=== PATIENT | female | born 1995 | race Caucasian/White ===

== ENCOUNTER 2020-01-17 05:47 | Inpatient (IN) | payer BC ==
[2020-01-17] MEDS ORDERED: Misoprostol 200 MCG Tab PO PRN (06:02)
[2020-01-17] MEDS ORDERED: Butorphanol 1 MG/ML SDV IVPUSH PRN (06:02)
[2020-01-17] MEDS ORDERED: Lidocaine 1% 50 ML MDV INJECT PRN (06:02)
[2020-01-17] MEDS ORDERED: Sodium Chloride 0.9% 10 ML SDV IV PRN (06:02)
[2020-01-17] MEDS ORDERED: Carboprost Tromethamine 250 MCG/1 ML Amp IM PRN (06:02)
[2020-01-17] MEDS ORDERED: Nalbuphine 10 MG/1 ML Vial IVPUSH PRN (06:02)
[2020-01-17] MEDS ORDERED: Sodium Chloride 0.9% 2.5 ML Syringe FLUSH PRN (06:02)
[2020-01-17] MEDS ORDERED: Methylergonovine 0.2 MG/1 ML Amp IM PRN (06:02)
[2020-01-17] MEDS ORDERED: Sodium Chloride 0.9% 10 ML Syringe FLUSH PRN (06:02)
[2020-01-17] MEDS ORDERED: Tranexamic Acid 1,000 MG in Sodium Chloride 0.9% 100 ML IV PRN (06:02)
[2020-01-17] MEDS ORDERED: Water For Irrigation,Sterile 1,000 ML Container IRR PRN (06:02)
[2020-01-17] MEDS ORDERED: Lactated Ringers 1,000 ML IV SCH (06:15)
[2020-01-17] MEDS ORDERED: Oxytocin/0.9 % Sodium Chloride 30 UNIT/500 ML BAG IV SCH (06:15)
[2020-01-17] MEDS ORDERED: Witch Hazel Medicated Pads 40/Jar TOP PRN (06:45)
[2020-01-17] MEDS ORDERED: Acetaminophen 500 MG Tab PO PRN (06:45)
[2020-01-17] MEDS ORDERED: Docusate Sodium 100 MG Cap PO PRN (06:45)
[2020-01-17] MEDS ORDERED: Bisacodyl 10 MG Supp RECTAL PRN (06:45)
[2020-01-17] MEDS ORDERED: oxyCODONE 5 MG Tab PO PRN (06:45)
[2020-01-17] MEDS ORDERED: Benzocaine/Menthol 20%-0.5% Spray 78 GM Cannister TOP PRN (06:45)
[2020-01-17] MEDS ORDERED: Lanolin 100% Cream 7 GM Tube TOP PRN (06:45)
--- NOTE | 2020-01-17 06:48 | PCM.DEL ---
L & D Note - General Info Date of Service: 01/17/20 Mother's Due Date: 02/01/20 - Delivery Note Labor: Spontaneous Delivery Outcome: Livebirth Infant Delivery Method: Spontaneous Vaginal Delivery-Single Presentation: Vertex Nuchal Cord: Present, Reduced (after delivery of body) Anesthesia Type: None Amniotic Fluid Description: Clear Episiotomy Type: None Laceration: Labial (left labial, hemostatic without repair) Placenta: Intact, Spontaneous Cord: 3 Vessels Resuscitation Needed: Yes : Stimulated Score 1 min: 8 Score 5 min: 9 - General Info Date of Service: 01/17/20 - Patient Data Weight - Most Recent: 104.326 kg Lab Results Last 24 Hours: Laboratory Results - last 24 hr 01/17/20 Range/Units 06:16 WBC 8.12 (4.0-11.0) K/uL RBC 4.21 L (4.30-5.90) M/uL Hgb 12.3 (12.0-16.0) g/dL Hct 38.0 (36.0-46.0) % MCV 90.3 (80.0-98.0) fL MCH 29.2 (27.0-32.0) pg MCHC 32.4 (31.0-37.0) g/dL RDW Std Deviation 46.4 (28.0-62.0) fl RDW Coeff of Romi 14 (11.0-15.0) % Plt Count 214 (150-400) K/uL MPV 10.90 (7.40-12.00) fL Nucleated RBC % 0.0 /100WBC Nucleated RBCs # 0 K/uL Med Orders - Current: Current Medications Butorphanol Tartrate (Stadol) 1 mg IVPUSH Q1H PRN PRN Reason: Pain Carboprost Tromethamine (Hemabate Ds) 250 mcg IM ASDIRECTED PRN PRN Reason: Post Hemorrhage Lactated Ringer's (Ringers, Lactated) 1,000 mls @ 150 mls/hr IV ASDIRECTED WHIT Last Admin: 01/17/20 06:00 Dose: 150 mls/hr Oxytocin/Sodium Chloride (Oxytocin 30 Unit/500 Ml-Ns) 30 unit in 500 mls @ 500 mls/hr IV TITRATE WHIT Last Admin: 01/17/20 06:29 Dose: 500 mls/hr Tranexamic Acid 1,000 mg/ (Sodium Chloride) 110 mls @ 660 mls/hr IV ONETIME PRN PRN Reason: Bleeding Lidocaine HCl (Xylocaine 1%) 50 ml INJECT ONETIME PRN PRN Reason: Laceration repair Methylergonovine Maleate (Methergine) 0.2 mg IM ASDIRECTED PRN PRN Reason: Post Hemorrhage Misoprostol (Cytotec) 200 mcg PO ONETIME PRN PRN Reason: Post Hemorrhage Nalbuphine HCl (Nubain) 10 mg IVPUSH Q1H PRN PRN Reason: Pain (severe 7-10) Sodium Chloride (Saline Flush) 10 ml FLUSH ASDIRECTED PRN PRN Reason: Keep Vein Open Sodium Chloride (Saline Flush) 2.5 ml FLUSH ASDIRECTED PRN PRN Reason: Keep Vein Open Sodium Chloride (Normal Saline) 10 ml IV ASDIRECTED PRN PRN Reason: IV Use Sterile Water (Sterile Water For Irrigation) 1,000 ml IRR ASDIRECTED PRN PRN Reason: delivery - Problem List & Annotations (1) Vaginal delivery SNOMED Code(s): 951337095 Code(s): O80 - ENCOUNTER FOR FULL-TERM UNCOMPLICATED DELIVERY Status: Acute Current Visit: Yes - Problem List Review Problem List Initiated/Reviewed/Updated: Yes - My Orders Last 24 Hours: My Active Orders 01/17/20 06:02 Patient Status [ADT] Routine Heart Tones [RC] CONTINUOUS Non Stress Test [RC] PER UNIT ROUTINE May Shower [RC] ASDIRECTED Notify Provider [RC] PRN Up ad Lora [RC] ASDIRECTED Vaginal Exam [RC] PRN Vital Signs [RC] PER UNIT ROUTINE Butorphanol [Stadol] 1 mg IVPUSH Q1H PRN Carboprost Tromethamine [Hemabate DS] 250 mcg IM ASDIRECTED PRN Lidocaine 1% [Xylocaine 1%] 50 ml INJECT ONETIME PRN Methylergonovine [Methergine] 0.2 mg IM ASDIRECTED PRN Nalbuphine [Nubain] 10 mg IVPUSH Q1H PRN Sodium Chloride 0.9% [Normal Saline] 10 ml IV ASDIRECTED PRN Sodium Chloride 0.9% [Saline Flush] 10 ml FLUSH ASDIRECTED PRN Sodium Chloride 0.9% [Saline Flush] 2.5 ml FLUSH ASDIRECTED PRN Tranexamic Acid [Cyklokapron] 1,000 mg Sodium Chloride 0.9% [Normal Saline] 100 ml IV ONETIME Water For Irrigation,Sterile [Sterile Water for Irrigation] 1,000 ml IRR ASDIRECTED PRN miSOPROStoL [Cytotec] 200 mcg PO ONETIME PRN Scalp Electrode [WOMSER] Per Unit Routine Peripheral IV Insertion Adult [OM.PC] Routine Resuscitation Status Routine 01/17/20 06:15 Lactated Ringers [Ringers, Lactated] 1,000 ml IV ASDIRECTED Oxytocin/0.9 % Sodium Chloride [Oxytocin 30 Unit/500 ML-NS] 30 unit in 500 ml IV TITRATE 01/17/20 06:16 RPR (SYPHILIS SERO) W/ RFLX [REF] Routine TYPE AND SCREEN [BBK] Routine 01/17/20 06:45 Patient Status [ADT] Routine May Shower [RC] ASDIRECTED Notify Provider Vital Signs [RC] ASDIRECTED Up ad Lora [RC] ASDIRECTED Vital Signs [RC] PER UNIT ROUTINE Acetaminophen [Tylenol Extra Strength] 1,000 mg PO Q6H PRN Benzocaine/Menthol [Dermoplast Pain Relief 20%-0.5% [place]] 78 gm TOP ASDIRECTED PRN Docusate Sodium [Colace] 100 mg PO BID PRN Ibuprofen [Motrin] 800 mg PO Q8H PRN Lanolin [Lansinoh HPA] See Dose Instructions TOP ASDIRECTED PRN bisacodyL [Dulcolax] 10 mg RECTAL ONETIME PRN oxyCODONE 5 mg PO Q2H PRN witch Natty [Tucks] 1 pad TOP ASDIRECTED PRN Assess Lochia [WOMSER] Per Unit Routine Assess Uterine Involution [WOMSER] Per Unit Routine Breast Pump [WOMSER] Per Unit Routine Ice Therapy [OM.PC] Per Unit Routine Perineal Care [OM.PC] Per Unit Routine Peripheral IV Discontinue [OM.PC] Routine Sitz Bath [OM.PC] Per Unit Routine 01/17/20 06:46 Cooling Warming Measures [RC] ASDIRECTED BLOOD GAS ARTERIAL UMBILICAL [BG] Routine BLOOD GAS VENOUS UMBILICAL [BG] Routine 01/17/20 09:00 Sertraline [Zoloft] 150 cap PO DAILY 01/17/20 Breakfast Regular Diet [DIET] 01/18/20 05:11 HEMOGLOBIN/HEMATOCRIT,HH [HEME] Timed - Assessment Assessment:: 24yo s/p at 37w6d - Plan Plan:: Admit to unit for routine care. Continue Sertraline.
[2020-01-17] MEDS: Ibuprofen 800 MG Tab PO PRN (07:26)
[2020-01-17] MEDS ORDERED: Sertraline 100 MG Tab PO SCH (09:00)
--- NOTE | 2020-01-17 12:46 | OR ---
SURGEON: Gale Pollard MD DATE OF PROCEDURE: 01/17/2020 PREOPERATIVE DIAGNOSES: 1. A 24-year-old, G2, P 1-0-0-1, at 37-6/7 weeks' gestation. 2. Spontaneous labor. 3. Group B Streptococcus negative. POSTOPERATIVE DIAGNOSES: A 24-year-old, G2, P 2-0-0-2, status post spontaneous vaginal delivery. PROCEDURE: Spontaneous vaginal delivery. PRIMARY SURGEON: Gale Pollard MD. ESTIMATED BLOOD LOSS: 200 mL. ANESTHESIA: None. FINDINGS: Live female in cephalic presentation. score of 8 and 9 at one and five minutes respectively. Weight 3290 g. Left labial laceration, hemostatic without repair. Placenta intact and with 3-vessel cord. DESCRIPTION OF PROCEDURE: The patient presented to Labor and Delivery complaining of contractions and bleeding. Upon presentation, she was found to be 6 cm dilated and with a bulging bag of water. Rupture of membranes occurred during vaginal exam. The patient quickly progressed to complete cervical dilation. She pushed and delivered a live female infant in cephalic presentation. The head was delivered followed by the shoulders and remainder of the body. A nuchal cord x1 was reduced after delivery of the body. The infant was placed on the maternal abdomen. After approximately 60 seconds, the cord was clamped and cut. Cord gases and cord blood were obtained in the usual fashion. Perineum was inspected and left labial laceration was noted, however, this was hemostatic without repair. The placenta then delivered intact and with 3-vessel cord via the Barger-Felipe maneuver. The patient and tolerated the delivery well. [id number] / MODL /[id number]
[2020-01-18] MEDS: Ibuprofen 800 MG Tab PO PRN (04:34)
--- NOTE | 2020-01-18 08:24 | PCM.PNPP ---
- General Info Date of Service: 01/18/20 Functional Status: Reports: Pain Controlled, Tolerating Diet, Ambulating, Urinating - Review of Systems General: Reports: No Symptoms HEENT: Reports: No Symptoms Pulmonary: Reports: No Symptoms Cardiovascular: Reports: No Symptoms Gastrointestinal: Reports: No Symptoms Genitourinary: Reports: No Symptoms Musculoskeletal: Reports: No Symptoms Skin: Reports: No Symptoms Neurological: Reports: No Symptoms Psychiatric: Reports: No Symptoms - Patient Data Vital Signs - Most Recent: Last Vital Signs Temp 36.1 C 01/18/20 05:01 Pulse 82 01/18/20 05:01 Resp 17 01/18/20 05:01 BP 111/73 01/18/20 05:01 Pulse Ox 96 01/18/20 05:01 Weight - Most Recent: 99.79 kg Lab Results - Last 24 Hours: Laboratory Results - last 24 hr 01/18/20 Range/Units 06:03 Hgb 12.9 (12.0-16.0) g/dL Hct 39.6 (36.0-46.0) % Med Orders - Current: Current Medications Acetaminophen (Tylenol Extra Strength) 1,000 mg PO Q6H PRN PRN Reason: Pain Last Admin: 01/17/20 14:40 Dose: 1,000 mg Benzocaine/Menthol (Dermoplast Pain Relief 20%-0.5% [place]) 78 gm TOP ASDIRECTED PRN PRN Reason: Perineal Comfort Measure Last Admin: 01/17/20 07:25 Dose: 1 canister Bisacodyl (Dulcolax) 10 mg RECTAL ONETIME PRN PRN Reason: Constipation Butorphanol Tartrate (Stadol) 1 mg IVPUSH Q1H PRN PRN Reason: Pain Carboprost Tromethamine (Hemabate Ds) 250 mcg IM ASDIRECTED PRN PRN Reason: Post Hemorrhage Docusate Sodium (Colace) 100 mg PO BID PRN PRN Reason: Constipation Last Admin: 01/17/20 07:26 Dose: 100 mg Emollient Ointment (Lansinoh Hpa) 0 gm TOP ASDIRECTED PRN PRN Reason: Sore Nipples Last Admin: 01/17/20 07:25 Dose: 7 gm Lactated Ringer's (Ringers, Lactated) 1,000 mls @ 150 mls/hr IV ASDIRECTED WHIT Last Admin: 01/17/20 06:00 Dose: 150 mls/hr Oxytocin/Sodium Chloride (Oxytocin 30 Unit/500 Ml-Ns) 30 unit in 500 mls @ 500 mls/hr IV TITRATE [facility] Last Admin: 01/17/20 06:29 Dose: 500 mls/hr Tranexamic Acid 1,000 mg/ (Sodium Chloride) 110 mls @ 660 mls/hr IV ONETIME PRN PRN Reason: Bleeding Ibuprofen (Motrin) 800 mg PO Q8H PRN PRN Reason: Pain Last Admin: 01/18/20 04:34 Dose: 800 mg Lidocaine HCl (Xylocaine 1%) 50 ml INJECT ONETIME PRN PRN Reason: Laceration repair Methylergonovine Maleate (Methergine) 0.2 mg IM ASDIRECTED PRN PRN Reason: Post Hemorrhage Misoprostol (Cytotec) 200 mcg PO ONETIME PRN PRN Reason: Post Hemorrhage Nalbuphine HCl (Nubain) 10 mg IVPUSH Q1H PRN PRN Reason: Pain (severe 7-10) Oxycodone HCl (Oxycodone) 5 mg PO Q2H PRN PRN Reason: Pain Sertraline HCl (Zoloft) mg PO DAILY [facility] Sodium Chloride (Saline Flush) 10 ml FLUSH ASDIRECTED PRN PRN Reason: Keep Vein Open Sodium Chloride (Saline Flush) 2.5 ml FLUSH ASDIRECTED PRN PRN Reason: Keep Vein Open Sodium Chloride (Normal Saline) 10 ml IV ASDIRECTED PRN PRN Reason: IV Use Sterile Water (Sterile Water For Irrigation) 1,000 ml IRR ASDIRECTED PRN PRN Reason: delivery Witch Zakia (Tucks) 1 pad TOP ASDIRECTED PRN PRN Reason: comfort care Last Admin: 01/17/20 07:25 Dose: 1 container - Infant Interaction Disposition, : to Nursery Feeding: Breastfed ; Nursed Well Support Person: Significant Other - Recovery Exam Fundal Tone: Firm Fundal Level: 2 Fingerbreadths Below Umbilicus Fundal Placement: Midline Lochia Amount: Scant Lochia Color: Rubra/Red Perineum Description: Intact, Minimal Bruising/Swelling Other Perinuem Description: skin ortiz Episiotomy/Laceration: None Bladder Status: Voiding Urinary Elimination: Voided - Exam General: Alert, Oriented Neck: Supple Lungs: Normal Respiratory Effort GI/Abdominal Exam: Soft, Non-Tender, No Distention, No Mass Extremities: Normal Range of Motion, Non-Tender, No Pedal Edema Skin: Warm Neurological: No New Focal Deficit - Problem List & Annotations (1) Vaginal delivery SNOMED Code(s): 595244835 Code(s): O80 - ENCOUNTER FOR FULL-TERM UNCOMPLICATED DELIVERY Status: Acute Current Visit: Yes - Problem List Review Problem List Initiated/Reviewed/Updated: Yes - Assessment Assessment:: PPD#1 after , stable, minimal lochia, tolerating regular diet, minimal lochia , pain well controlled - Plan Plan:: Dismiss to home. Discharge precautions reviewed.
== END 2020-01-18 11:49 | disposition home or self-care (01) | DRG 560 ==
LOC: MW.OBCHECK 05:47 → MW.OB 06:02 → OBSVTOIN 06:28 → MW.OB 06:28
PROVIDERS: ADMIT Obstetrics & Gynecology; ATTEND Obstetrics & Gynecology
PROC: 10E0XZZ Delivery of Products of Conception, External Approach (ICD-10-PCS; principal; 2020-01-17)
DX: O69.81X0 Labor and delivery complicated by cord around neck, without compression, not applicable or unspecified (principal); O70.0 First degree perineal laceration during delivery; Z3A.37 37 weeks gestation of pregnancy; Z37.0 Single live birth
CPT/HCPCS: 36415; 59025; 59409; 82803; 85014; 85018; 85027; 86592; 86593; 86850; 86900; 86901; A9270-GY; J2590; J7120

== ENCOUNTER 2020-10-07 16:00 | Emergency (ER) | payer BC ==
--- NOTE | 2020-10-07 16:06 | EDM.PDOC ---
ED HPI GENERAL MEDICAL PROBLEM - General Chief Complaint: General Stated Complaint: VISION,DOES NOT FEEL WELL Time Seen by Provider: 10/07/20 16:01 Source of Information: Reports: Patient History Limitations: Reports: No Limitations - History of Present Illness INITIAL COMMENTS - FREE TEXT/NARRATIVE: HISTORY AND PHYSICAL: History of present illness: Patient is a 25-year-old female who presents to the ED today with concern of dizziness and unable to describe exactly what she means x3 days. Patient states 3 days ago she saw her primary care provider, Dr. Romero and at that time he had stopped her Zoloft and Wellbutrin and started her on Seroquel. Patient states that she is unsure if she is having withdrawals from stopping her Zoloft and Wellbutrin or if she is having an adverse reaction to her Seroquel. Patient describes a vague "dizziness "and states that she feels "out of it ". Patient states that she saw "bizarre colors" after taking her first dose of Seroquel and also had one episode of hearing whispering after taking her first dose of Seroquel a few days ago but is not currently hearing this. Patient states that she has had a history of bipolar in the past and was having issues with ruben and depression. Patient states this is why Dr. Pedraza was switching her medications. Patient denies any head injury or trauma. Patient states she rangel been on 100mg of Zoloft and 150mg of Wellbutrin and stopped these without tapering as well as started Seroquel for the first time on the same day. Denies any head trauma or injury or any other symptoms or concerns. Patient denies fever, chills, chest pain, shortness of breath, or cough. Denies headache, neck stiff ness, change in vision, syncope, or near syncope. Denies nausea, vomiting, abdominal pain, diarrhea, constipation, or dysuria. Has not noted any blood in urine or stool. Patient has been eating and drinking appropriately. Review of systems: As per history of present illness and below otherwise all systems reviewed and negative. Past medical history: As per history of present illness and as reviewed below otherwise noncontributory. Surgical history: As per history of present illness and as reviewed below otherwise noncontributory. Social history: See social history for further information Family history: As per history of present illness and as reviewed below otherwise noncontr ibutory. Physical exam: General: Patient is alert, oriented, and in no acute distress. Patient sitting comfortably on exam table. Vital stable and reviewed by me. HEENT: Atraumatic, normocephalic, pupils equal and reactive bilaterally, negative for conjunctival pallor or scleral icterus, mucous membranes moist, TMs normal bilaterally, throat clear, neck supple, nontender, trachea midline. No drooling or trismus noted. No meningeal signs. No hot potato voice noted. Lungs: Clear to auscultation, breath sounds equal bilaterally, chest nontender. Heart: S1S2, regular rate and rhythm without overt murmur Abdomen: Soft, nondistended, nontender. Negative for masses or hepatosplenomegaly. Negative for costovertebral tenderness. Pelvis: Stable nontender. Genitourinary: Deferred. Rectal: Deferred. Skin: Intact, warm, dry. No lesions or rashes noted. Extremities: Atraumatic, negative for cords or calf pain. Neurovascular unremarkable. Neuro: Awake, alert, oriented. Cranial nerves II through XII unremarkable. Cerebellum unremarkable. Motor and sensory unremarkable throughout. Exam nonfocal. Notes: Patient expresses improvement of her symptoms today in the ED. Signs and symptoms that would prompt return to the ED [id number] discussed with patient Discussed the importance for follow up with her PCP and for medication management. Voices understanding and is agreeable to plan of care. Denies any further questions or concerns at this time. Diagnostics: EKG, CBC, CMP, Serum hcg, Trop, orthostatic vitals Therapeutics: NS, Meclizine Prescription: None Impression: Dizziness, unspecified, improved Plan: 1. Follow-up with your primary care provider as discussed for further medication management. Return to ED as needed and as discussed. Definitive disposition and diagnosis as appropriate pending reevaluation and review of above. - Related Data Allergies Allergy/AdvReac Type Severity Reaction Status Date / Time No Known Allergies Allergy Verified 10/07/20 16:28 Home Meds: Home Meds QUEtiapine Fumarate [Seroquel Xr] 50 mg PO DAILY 10/07/20 [History] Past Medical History [employer] History: Reports: Musculoskeletal History: Reports: Arthritis Other Musculoskeletal History: arthritis in bilateral knees. Psychiatric History: Reports: Anxiety, Depression - Past Surgical History Musculoskeletal Surgical History: Reports: Other (See Below) Other Musculoskeletal Surgeries/Procedures:: Left knee surgery x2 Social & Family History - Family History HEENT: Reports: Glaucoma Cardiac: Reports: [place] OBGYN: Reports: Neurological: Reports: Alzheimers Disease, Migraines Psychiatric: Reports: Anxiety, Depression Endocrine/Metabolic: Reports: Diabetes, type II Dermatologic: Reports: Eczema Other Oncologic Family History: yes but patient does not know what type. - Caffeine Use Caffeine Use: Reports: Coffee ED ROS GENERAL - Review of Systems Review Of Systems: Comprehensive ROS is negative, except as noted in HPI. ED EXAM, GENERAL - Physical Exam Exam: See Below (see dictation) Course - Vital Signs Last Recorded V/S: Last Vital Signs Temp 97.1 F 10/07/20 16:23 Pulse 91 10/07/20 16:23 Resp 16 10/07/20 16:23 BP 134/85 10/07/20 16:23 Pulse Ox 97 10/07/20 16:23 Orthostatic Blood Pressure [] 126/81 Orthostatic Blood Pressure [] 127/81 Orthostatic Blood Pressure [] 127/89 - Orders/Labs/Meds Orders: Active Orders 24 hr Category Date Time Status EKG Documentation Completion [RC] STAT Care 10/07/20 16:52 Active Orthostatic Vital Signs [RC] ASDIRECTED Care 10/07/20 16:55 Active UA RFX WALLACE AND CULT IF INDIC [URIN] Stat Lab 10/07/20 16:50 Stop Req Labs: Laboratory Tests 10/07/20 10/07/20 10/07/20 Range/Units 17:25 17:25 17:25 WBC 5.33 (4.0-11.0) K/uL RBC 4.63 (4.30-5.90) M/uL Hgb 14.1 (12.0-16.0) g/dL Hct 42.6 (36.0-46.0) % MCV 92.0 (80.0-98.0) fL MCH 30.5 (27.0-32.0) pg MCHC 33.1 (31.0-37.0) g/dL RDW Std Deviation 46.6 (28.0-62.0) fl RDW Coeff of Romi 14 (11.0-15.0) % Plt Count 252 (150-400) K/uL MPV 10.60 (7.40-12.00) fL Neut % (Auto) 63.5 (48.0-80.0) % Lymph % (Auto) 27.8 (16.0-40.0) % [place] % (Auto) 6.2 (0.0-15.0) % Eos % (Auto) 2.1 (0.0-7.0) % Baso % (Auto) 0.4 (0.0-1.5) % Neut # (Auto) 3.4 (1.4-5.7) K/uL Lymph # (Auto) 1.5 (0.6-2.4) K/uL [place] # (Auto) 0.3 (0.0-0.8) K/uL Eos # (Auto) 0.1 (0.0-0.7) K/uL Baso # (Auto) 0.0 (0.0-0.1) K/uL Nucleated RBC % 0.0 /100WBC Nucleated RBCs # 0 K/uL Sodium 141 (136-145) mmol/L Potassium 4.0 (3.5-5.1) mmol/L Chloride 103 (98-107) mmol/L Carbon Dioxide 28.3 (21.0-32.0) mmol/L BUN 18 (7.0-18.0) mg/dL Creatinine 0.8 (0.6-1.0) mg/dL Est Cr Clr Drug Dosing 104.54 mL/min Estimated GFR (MDRD) > 60.0 ml/min Glucose 91 (74-106) mg/dL Calcium 9.8 (8.5-10.1) mg/dL Total Bilirubin 0.2 (0.2-1.0) mg/dL AST 14 L (15-37) IU/L ALT 36 (14-63) IU/L Alkaline Phosphatase 95 (46-116) U/L Troponin I < 0.050 (0.000-0.056) ng/mL Total Protein 8.7 H (6.4-8.2) g/dL Albumin 4.6 (3.4-5.0) g/dL Globulin 4.1 H (2.6-4.0) g/dL Albumin/Globulin Ratio 1.1 (0.9-1.6) HCG, Qual NEGATIVE (NEG) Meds: Medications Discontinued Medications Generic Name Dose Route Start Last Admin Trade Name Carolyn PRN Reason Stop Dose Admin Sodium Chloride 1,000 mls @ 999 mls/hr 10/07/20 16:55 10/07/20 17:24 Normal Saline IV 10/07/20 17:55 999 mls/hr STAT ONE Administration Meclizine HCl 25 mg 10/07/20 16:53 10/07/20 17:24 Antivert PO 10/07/20 16:54 25 mg ONETIME ONE Administration Departure - Departure Time of Disposition: 18:40 Disposition: Home, Self-Care 01 Clinical Impression: Dizziness - Discharge Information Instructions: Dizziness, [id number] Referrals: PCP,None [Primary Care Provider] - Forms: ED Department Discharge Additional Instructions: The following information is given to patients seen in the emergency department who are being discharged to home. This information is to outline your options for follow-up care. We provide all patients seen in our emergency department with a follow-up referral. The need for follow-up, as well as the timing and circumstances, are variable depending upon the specifics of your emergency department visit. If you don't have a primary care physician on staff, we will provide you with a referral. We always advise you to contact your personal physician following an emergency department visit to inform them of the circumstance of the visit and for follow-up with them and/or the need for any referrals to a consulting specialist. The emergency department will also refer you to a specialist when appropriate. This referral assures that you have the opportunity for follow-up care with a specialist. All of these measure are taken in an effort to provide you with optimal care, which includes your follow-up. Under all circumstances we always encourage you to contact your private physician who remains a resource for coordinating your care. When calling for follow-up care, please make the office aware that this follow-up is from your recent emergency room visit. If for any reason you are refused follow-up, please contact the [facility] Emergency Department at and asked to speak to the emergency department charge nurse. [facility] [address] [place] [id number] [facility] [address] [place] [address] 1. Follow-up with your primary care provider as discussed for further medication management. Return to ED as needed and as discussed. Sepsis Event Note (ED) - Focused Exam Vital Signs: Vital Signs Temp Pulse Resp BP Pulse Ox 10/07/20 16:23 97.1 F 91 16 134/85 97 - My Orders Last 24 Hours: My Active Orders 10/07/20 16:50 UA RFX WALLACE AND CULT IF INDIC [URIN] Stat 10/07/20 16:52 EKG Documentation Completion [RC] STAT 10/07/20 16:55 Orthostatic Vital Signs [RC] ASDIRECTED - Assessment/Plan Last 24 Hours: My Active Orders 10/07/20 16:50 UA RFX WALLACE AND CULT IF INDIC [URIN] Stat 10/07/20 16:52 EKG Documentation Completion [RC] STAT 10/07/20 16:55 Orthostatic Vital Signs [RC] ASDIRECTED
[2020-10-07] MEDS ORDERED: Meclizine 25 MG Tab PO ONE (16:53)
[2020-10-07] MEDS ORDERED: Sodium Chloride 0.9% 1,000 ML IV ONE (16:55)
--- NOTE | 2020-10-07 17:28 | PCM.SN.2 ---
- Free Text/Narrative Note: 12-Lead ECG Interpretation Acquired: 5:24 PM Rhythm: Sinus rhythm Rate: 73 bpm [place]: Normal Intervals: Normal Ectopy: None RV Strain: No obvious RV strain pattern. ST Segments/T-Waves: No notable changes Acute Ischemic Changes: None apparent Interpretation: No STEMI
--- NOTE | 2020-10-07 17:59 | CR ---
Indication: Dizziness Comparison: None available. Technique: Single AP view chest Findings: There is no focal consolidation, effusion, or pneumothorax. The cardiomediastinal silhouette is within normal limits. The bony thorax is grossly intact. Impression: No acute cardiopulmonary abnormality. Dictated by Mannie Nielson MD @ Oct 07 2020 5:57PM Signed by Dr. Mannie Nielson @ Oct 07 2020 5:58PM
[2020-10-07 18:08] LABS: BLOOD UREA NITROGEN,BUN 18 mg/dL (7.0-18.0); CARBON DIOXIDE,CO2 28.3 mmol/L (21.0-32.0); CHLORIDE,CL 103 mmol/L (98-107); GLUCOSE RANDOM 91 mg/dL (74-106); SODIUM,NA 141 mmol/L (136-145)
== END 2020-10-07 19:00 | disposition home or self-care (01) ==
LOC: MW.ED 16:00
DX: R42 Dizziness and giddiness (principal); F41.9 Anxiety disorder, unspecified; F32.9 Major depressive disorder, single episode, unspecified; Z79.899 Other long term (current) drug therapy
CPT/HCPCS: 36415; 71045; 80053; 84484; 84703; 85025; 93005; 99284; A9270; J7030; 93010; 99283

== ENCOUNTER 2022-10-20 06:50 | Observation (INO) | payer MEDICAID ==
[2022-10-20] MEDS ORDERED: Sodium Chloride 0.9% 2.5 ML Syringe FLUSH PRN ×2 (07:16→11:47)
[2022-10-20] MEDS ORDERED: Sodium Chloride 0.9% 10 ML Syringe FLUSH PRN ×2 (07:16→11:47)
[2022-10-20] MEDS ORDERED: Sodium Chloride 0.9% 1,000 ML IV ONE ×2 (07:16→10:54)
[2022-10-20] MEDS ORDERED: Ondansetron 4 MG/2 ML SDV IVPUSH ONE (07:16)
[2022-10-20 08:45] LABS: ACETAMINOPHEN <2.0 ug/mL; BLOOD UREA NITROGEN,BUN 17 mg/dL (7.0-18.0); CARBON DIOXIDE,CO2 24.6 mmol/L (21.0-32.0); CHLORIDE,CL 104 mmol/L (98-107); GLUCOSE RANDOM 107 mg/dL (74-106); POTASSIUM,K 3.6 mmol/L (3.5-5.1); SODIUM,NA 141 mmol/L (136-145)
[2022-10-20 08:53] LABS: ESTIMATED GFR 90 mL/min (>60)
[2022-10-20] MEDS ORDERED: Acetaminophen 325 MG Tab PO PRN (11:47)
[2022-10-20] MEDS ORDERED: Ondansetron 4 MG/2 ML SDV IVPUSH PRN (11:47)
[2022-10-20] MEDS ORDERED: LORazepam 0.5 MG Tab PO PRN (11:51)
[2022-10-20] MEDS ORDERED: LORazepam 2 MG/ML SDV IVPUSH PRN (11:51)
[2022-10-20] MEDS: Sodium Chloride 0.9% 1,000 ML IV SCH ×2 (13:30→22:16)
[2022-10-20] MEDS ORDERED: Potassium Chloride 20 MEQ Tab.ER PO ONE (14:17)
[2022-10-20] MEDS ORDERED: Magnesium Sulfate/Water 2 GM in Premix Bag 1 BAG IV ONE (14:17)
[2022-10-21] MEDS: Sodium Chloride 0.9% 1,000 ML IV SCH (07:16)
[2022-10-21 08:21] LABS: CARBON DIOXIDE,CO2 22.1 mmol/L (21.0-32.0); POTASSIUM,K 4.3 mmol/L (3.5-5.1)
== END 2022-10-21 11:24 | disposition home or self-care (01) ==
LOC: MW.ED 06:50 → MW.MS 10:50
PROVIDERS: ADMIT Internal Medicine; ATTEND Internal Medicine
DX: T50.901A Poisoning by unspecified drugs, medicaments and biological substances, accidental (unintentional), initial encounter (principal); F41.8 Other specified anxiety disorders; R00.0 Tachycardia, unspecified; F17.210 Nicotine dependence, cigarettes, uncomplicated; Z79.899 Other long term (current) drug therapy; Z20.822 Contact with and (suspected) exposure to COVID-19
CPT/HCPCS: 36415; 80053; 80143; 80179; 80305; 80307; 81001; 83735; 84443; 84703; 85025; 87086; 87088; 87186; 87635; 93005; A9270; J2405; J3475; J3490; J7030; 96361; 96374; 96375; 99285-25; G0378; U0002

== ENCOUNTER 2024-04-23 20:37 | Inpatient (IN) | payer BC, MEDICAID ==
[2024-04-23] MEDS ORDERED: Sodium Chloride 0.9% 10 ML Syringe FLUSH PRN (21:33)
[2024-04-23] MEDS ORDERED: Sodium Chloride 0.9% 2.5 ML Syringe FLUSH PRN (21:33)
[2024-04-23] MEDS ORDERED: Methylergonovine 0.2 MG/1 ML Amp IM PRN (21:33)
[2024-04-23] MEDS ORDERED: Tranexamic Acid IN NACL,ISO-OS 1,000 MG in Premix Bag 1 BAG IV PRN (21:33)
[2024-04-23] MEDS ORDERED: Carboprost Tromethamine 250 MCG/1 mL Vial IM PRN (21:33)
[2024-04-23] MEDS ORDERED: Ondansetron 4 MG/2 ML SDV IVPUSH PRN (21:33)
[2024-04-23] MEDS ORDERED: Sodium Chloride 0.9% 20 ML SDV IV PRN (21:33)
[2024-04-23] MEDS ORDERED: Misoprostol 200 MCG Tab PO PRN (21:33)
[2024-04-23] MEDS ORDERED: Lidocaine 1% 50 ML MDV INJECT PRN (21:33)
[2024-04-23] MEDS ORDERED: Water For Irrigation,Sterile 1,000 ML Container IRR PRN (21:33)
[2024-04-23] MEDS ORDERED: Terbutaline 1 MG/ML SDV SUBCUT PRN (21:36)
[2024-04-23] MEDS ORDERED: Oxytocin/0.9 % Sodium Chloride 30 UNIT/500 ML BAG IV SCH (21:45)
[2024-04-23] MEDS: Lactated Ringers 1,000 ML IV SCH (22:00)
[2024-04-23] MEDS: Oxytocin/0.9 % Sodium Chloride 30 UNIT/500 ML BAG IV SCH (22:00)
[2024-04-23 22:56] LABS: HEMATOCRIT 35.6 % (37.0-47.0); HEMOGLOBIN 12.2 g/dL (12.0-16.0); MEAN CORPUSCULAR HEMOGLOBIN 29.2 pg (28.0-32.0); MEAN CORPUSCULAR HGB CONC 34.3 g/dL (32.0-36.0); MEAN CORPUSCULAR VOLUME 85.2 fL (83.0-99.0); MEAN PLATELET VOLUME 10.8 fL (9.4-12.3); PLATELET COUNT,PLT 188 K/uL (150-400); RED BLOOD CELL COUNT 4.18 M/uL (4.10-5.30); WHITE BLOOD CELL COUNT,WBC 8.63 K/uL (3.9-11.3)
[2024-04-24] MEDS: Butorphanol 2 MG/ML SDV IVPUSH PRN (00:45)
[2024-04-24] MEDS ORDERED: Aluminum Hydroxide/Magnesium Hydroxide/Simethicone XS Susp 30 ML Cup PO PRN (01:46)
[2024-04-24] MEDS ORDERED: Simethicone 80 MG Tab.Chew PO PRN (01:46)
[2024-04-24] MEDS ORDERED: Lanolin 100% Cream 7 GM Tube TOP PRN (01:46)
[2024-04-24] MEDS ORDERED: Measles, Mumps & Rubella Vaccine 0.5 ML SDV SUBCUT ONE (01:46)
[2024-04-24 02:21] LABS: PH,UMBILICAL ARTERIAL 7.282 (7.18-7.38); PH,UMBILICAL VENOUS 7.392 (7.25-7.45)
[2024-04-24] MEDS: Ibuprofen 800 MG Tab PO PRN (04:59)
[2024-04-24] MEDS: Acetaminophen 500 MG Tab PO PRN (05:00)
[2024-04-24] MEDS: Witch Hazel Medicated Pads 40/Jar TOP PRN (07:59)
[2024-04-24] MEDS: Benzocaine/Menthol 20%-0.5% Spray 78 GM Cannister TOP PRN (07:59)
[2024-04-24] MEDS: levETIRAcetam 500 MG Tab PO SCH (09:36)
[2024-04-24] MEDS: Docusate Sodium 100 MG Cap PO PRN (20:54)
[2024-04-24] MEDS: Simethicone 80 MG Tab.Chew PO PRN (23:11)
[2024-04-25 06:17] LABS: HEMATOCRIT 36.3 % (37.0-47.0); HEMOGLOBIN 12.2 g/dL (12.0-16.0)
== END 2024-04-25 12:10 | disposition home or self-care (01) | DRG 560 ==
LOC: MW.OB 20:37 → MW.OBCHECK 20:37 → MW.OB 21:33 → MW.OBCHECK 21:33 → OBSVTOIN 04-24 01:28 → MW.OB 04-24 07:03
PROVIDERS: ADMIT Obstetrics & Gynecology; ATTEND Obstetrics & Gynecology
PROC: 10E0XZZ Delivery of Products of Conception, External Approach (ICD-10-PCS; principal; 2024-04-24)
PROC: 10907ZC Drainage of Amniotic Fluid, Therapeutic from Products of Conception, Via Natural or Artificial Opening (ICD-10-PCS; 2024-04-24)
PROC: 3E0R3BZ Introduction of Anesthetic Agent into Spinal Canal, Percutaneous Approach (ICD-10-PCS; 2024-04-24)
PROC: 00HU33Z Insertion of Infusion Device into Spinal Canal, Percutaneous Approach (ICD-10-PCS; 2024-04-24)
DX: O80 Encounter for full-term uncomplicated delivery (principal); Z3A.39 39 weeks gestation of pregnancy; Z37.0 Single live birth
CPT/HCPCS: 36415; 59025; 59409; 82803; 84112; 85014; 85018; 85027; 86592; 86850; 86900; 86901; A9270-GY; J0595; J2590; J7120

== ENCOUNTER 2025-05-30 20:07 | Emergency (ER) | payer MEDICAID ==
[2025-05-30] MEDS: Bacitracin Oint 1 GM U/D Packet TOP ONE (21:18)
== END 2025-05-30 21:25 | disposition home or self-care (01) ==
LOC: MW.ED 20:07
DX: S61.211A Laceration without foreign body of left index finger without damage to nail, initial encounter (principal); Z88.8 Allergy status to other drugs, medicaments and biological substances; Z79.899 Other long term (current) drug therapy; W26.0XXA Contact with knife, initial encounter
CPT/HCPCS: 12001; 99282; J2003